=== PATIENT | male | born 1980 | race Caucasian/White ===

== ENCOUNTER 2025-07-23 17:37 | Emergency (ER) | payer BC, SELFPAY ==
[2025-07-23 17:44] VITALS: BP 169/89; PULSE 98; RESP 20; TEMP 36.6; O2SAT 100
--- NOTE | 2025-07-23 17:48 | ED.ABDPAIN ---
HPI - Abdominal Pain General Chief Complaint: Abdominal Pain Stated Complaint: Abdominal Pain Source: patient and RN notes reviewed Mode of arrival: ambulatory Limitations: no limitations History of Present Illness HPI narrative: 45 y/o male presented for c/o abdominal pain. Onset yesterday. Pain is improved today, rating 3/10, across the umbilical area. Endorses emesis twice today. Says he is vomiting bile or water. Has not wanted to eat anything today stating he is scared of the pain returning and therefore has only eaten a banana x2 days. LBM 4 days ago. Denies diarrhea, hematochezia, melena, fever. Pt is scheduled with pcp tomorrow. Taking Mounjaro. Related Data Home Medications ?Medication ?Instructions ?Recorded ?Confirmed ?Last Taken ?Type lisinopril 20 mg tablet mg 07/23/25 Unknown History metformin 850 mg tablet mg 07/23/25 Unknown History tirzepatide 7.5 mg/0.5 mL mg subcut 07/23/25 Unknown History subcutaneous pen injector (Mounjaro) Allergies Allergy/AdvReac Type Severity Reaction Status Date / Time No Known Allergies Allergy Unverified 10/24/12 12:01 Review of Systems Review of Systems: CONSTITUTIONAL: Denies body aches, fever, chills ENT: Denies rhinorrhea, congestion CARDIOVASCULAR: Denies chest pain, palpitations, or edema. RESPIRATORY: Denies cough or dyspnea. GASTROINTESTINAL: Endorses abdominal pain, nausea, Denies vomiting, diarrhea, hematochezia, melena, hematemesis GENITOURINARY: Denies dysuria, hematuria, or CVA tenderness. SKIN: Denies rash, itching, or wounds. MUSCULOSKELETAL: Denies back pain, joint pain, or myalgia. NEUROLOGIC: Denies headache, numbness, tingling, or weakness. All systems reviewed & are unremarkable except as noted in HPI and below PMFSH Past Medical History Medical History (Updated 07/23/25 @ 18:11 by Mari Worrell APRN) Diabetes Comments At time of signature, I have reviewed and agree with nursing past medical, surgical, social and family history unless otherwise noted. Please see nursing chart for further information. There is no relevant family history pertinent to the presenting complaint Exam Narrative: GENERAL: Well-appearing ENT: Mucous membranes pink and moist. CHEST: No respiratory distress. Clear to auscultation. HEART: Regular rate and rhythm. No murmur appreciated. Normal peripheral pulses. ABDOMEN: abd soft, nondistended, normal active bowel sounds. nontender abdomen; No guarding, rebound tenderness, asymmetry EXTREMITIES: Normal range of motion. No edema. SKIN: Warm, dry, no rash. Capillary refill normal. Normal skin turgor. NEURO: No focal deficits. Alert and oriented x3. PSYCH: Normal affect. Course Course Emergency Course: Patient is aware of diagnosis, understands and agrees to treatment plan. Anticipatory guidance given. Patient agrees to follow-up as directed and is aware of reasons to seek care at the emergency department. Portions of this record may have been created with voice recognition software Level of Care: Express Care Visit MDM - Abdominal Pain MDM Narrative Medical decision making narrative: Discussed physical exam findings and possible etiologies; pt reporting mild abdominal discomfort and has been able to tolerate fluids, but has not wanted to eat today because he is scared the pain. Offered ER transfer for imaging, vs monitoring and PPI. Pt says he has an appt with pcp tomorrow. Also says he already has Rx PPI at home. BS 173. Advised supportive measures and signs/symptoms to go to the ER. Pt is appropriate for outpt treatment and f/u. Differential Diagnosis Differential diagnosis: Likely abdominal pain, constipation, diverticulitis, gastroenteritis, pancreatitis and small bowel obstruction Discharge Plan Discharge Clinical Impression: Abdominal pain Patient Disposition: Home Condition: Stable Instructions: Antibiotic Form, Abdominal Pain (ED) Additional Instructions: You were advised to transfer to the ER and you decline at this time. You were made aware of the risk of refusal including worsening of your condition and . Report to the ER immediately for any worsening symptoms. Stay hydrated. Take small sips of fluid containing electrolytes frequently. Clear liquids (broth, jello, tea, sprite, pedialyte) [place] foods (bananas, rice, applesauce, toast, crackers) Avoid fatty, greasy, fried or spicy foods. Limit dairy until symptoms are improved. Restart the pantoprazole as previously prescribed You should go to the hospital if you experience persistent nausea and vomiting that does not resolve and does not allow you to tolerate any food or fluids, fevers, increasing abdominal pain, persistent diarrhea, dizziness, fainting, or for any other concerns. Follow up with primary care provider tomorrow as scheduled Patient Language: Amharic Prescriptions: New ondansetron 4 mg tablet,disintegrating 4 mg PO Q8H PRN (Reason: nausea and vomiting) Qty: 6 0RF No Action lisinopril 20 mg tablet metformin 850 mg tablet Mounjaro 7.5 mg/0.5 mL pen injector SUBCUT Follow-up/Referrals: Funmi,DILIP Lopez [Primary Care Provider] Stand Alone Forms: Work/School Release IP Time of Disposition: 18:03
== END 2025-07-23 18:11 | disposition home or self-care (01) ==
PROVIDERS: Emergency Provider Nurse Practitioner Family; PCP Physician Assistant
DX: R10.9 Unspecified abdominal pain (principal); E11.9 Type 2 diabetes mellitus without complications; Z79.84 Long term (current) use of oral hypoglycemic drugs; Z79.85 Long-term (current) use of injectable non-insulin antidiabetic drugs
CPT/HCPCS: 82948; 99203; G0463

== ENCOUNTER 2025-07-25 07:12 | Outpatient (CLI) | payer BC, SELFPAY ==
--- NOTE | ~2025-07-25 | US_ITS ---
US abdomen complete EXAMINATION: US Abdomen Complete INDICATION: Abdominal pain and distention. Emesis. PROCEDURE: Realtime High Resolution abdomen ultrasound. COMPARISON: No prior studies for comparison FINDINGS: Gallbladder within normal limits. No gallstones, pericholecystic fluid, gallbladder wall thickening or biliary dilatation. Common bile duct measures 4 mm. There are multiple hyperechoic liver masses, largest measuring 6.2 cm, compatible with metastatic disease. Correlation with CT or MRI with contrast recommended.. Pancreas within normal limits. Pancreatic tail is obscured by bowel gas. Spleen is unremarkeable. Renal echotexture is within normal limits bilaterally without hydronephrosis, contour deforming mass or renal stone. Right kidney measures 12.4 cm. Left kidney measures 10.7 cm. Visualized aspects of the aorta and IVC are within normal limits. Portal vein is patent. No sonographic Diane's sign indicated by the technologist. Small amount of free fluid. IMPRESSION: 1: Multiple hyperechoic liver masses, compatible with metastatic disease. Correlate for history of malignancy. Recommend further evaluation with CT or MRI with contrast. Reviewed, dictated and finalized at location O. IMPRESSION: 1: Multiple hyperechoic liver masses, compatible with metastatic disease. Corre late for history of malignancy. Recommend further evaluation with CT or MRI wit h contrast.
== END 2025-07-25 07:13 | disposition home or self-care (01) ==
LOC: CHSIMG 07:14
PROVIDERS: PCP Physician Assistant; Visit Provider Physician Assistant
DX: R14.0 Abdominal distension (gaseous) (principal); R16.0 Hepatomegaly, not elsewhere classified
CPT/HCPCS: 76700